=== PATIENT | female | born 1965 | race Hispanic/Latino ===

== ENCOUNTER 2023-11-20 06:52 | Day surgery (SDC) | payer SELFPAY ==
[~2023-11-20] VITALS: Ht 162.6 cm; Wt 93.4 kg
[~2023-11-20 06:52] MED LIST: ALDACTONE25 MG PO; BALANCED B-100100 MG PO; BIOTIN10 MG PO; CANDICIDAL CAP1 EACH PO; COZAAR100 MG PO; GINSENG250 MG PO; MULTI VITAMIN1 EACH PO; NORVASC5 MG PO
--- NOTE | 2023-11-20 06:55 | NUR ---
PT ARRIVES TO DAY SURGERY DEPT. PT REQUESTS TO USE FRIEND INTERPRETOR RATHER THAN COMPUTER INTERPRETOR AT THIS TIME. PT STATES COMFORTABLE W/DISCUSSING HEALTH HISTORY W/FRIEND PRESENT INTERPRETOR.
[2023-11-20 07:08] VITALS: BP 107/57
--- NOTE | 2023-11-20 08:33 | NUR ---
11/20/23 0833 Praveena Naranjo 0815 PT TO PACU SLEEPY BUT AROUSABLE, SHE DENIES PAIN AND NAUSEA. O2 CHANGED FROM OXYMASK TO NASAL CANNULA ON 3L.
[2023-11-20 09:00] VITALS: BP 99/60
--- NOTE | 2023-11-20 09:00 | NUR ---
PT ARRIVES TO DS UNIT FROM PACU VIA STRETCHER. PT IS POSITIONED SUPINE ON LFT SIDE. PT REPORTS NO PAIN OR NAUSEA AT THIS TIME. PT IS DROWSY BUT RESPONSIVE TO VERBAL STIMULI. CLAUDIO WIGGINS IN ROOM TO TRANSFER AND PROVIDE REPORT. CALL LIGHT WITHIN REACH, PT REPORTS NO FURTHER NEEDS OR QUESTIONS AT THIS TIME.
--- NOTE | 2023-11-20 09:45 | NUR ---
IN PT ROOM, PT REMAINS RESTING ON LEFT SIDE ON RA, O2 >90% AT THIS TIME. PT REPORTS NO NEEDS AT THIS TIME AND REMAINS DROWSY BUT RESPONSIVE TO VERBAL STIMULI. CALL LIGHT WITHIN REACH, NO FURTHER NEEDS AT THIS TIME.
--- NOTE | 2023-11-20 10:30 | OR ---
[facility] [address] [place], [place] [address] Signed DATE OF OPERATION: 11/20/2023 SURGEON: Tyron Cedillo MD PREOPERATIVE DIAGNOSIS: Screening. POSTOPERATIVE DIAGNOSIS: Tortuous sigmoid colon. PROCEDURE: Colonoscopy without biopsy. ESTIMATED BLOOD LOSS: None. INDICATIONS: Murali is a 58-year-old lady, who was asked to see me for initial screening colonoscopy. She actually speaks and comprehends Singaporean fairly well. Nevertheless, in our office, we did have an network control technician help via the phone line. She has no lower GI complaints. There is no family history of colon cancer or polyps. This would be her 1st colonoscopy. I gave her a brochure in the office written in American on colonoscopy. She understands the nature of the test. There is risk including, but not limited to gas bloating, crampy abdominal pain, bleeding, perforation requiring surgery, and missed diagnosis. We also reviewed the written instructions for the bowel prep also written in American. She also understands the need for IV conscious sedation. She had expressed understanding and wished to proceed. DESCRIPTION OF PROCEDURE: Murali was taken into our endoscopy suite and placed in the left lateral decubitus position. She was given 5 mg of Versed and 100 mcg of fentanyl to start the case. A digital rectal exam was performed. She has good sphincter tone. No external hemorrhoids. No masses. The adult colonoscope was introduced and advanced into a tortuous sigmoid colon. We had to give some additional sedation to get through the sigmoid colon. We looked back and sure enough she has had a hysterectomy for endometrial cancer in February and has had radiation therapy as well. We were looking into the left colon, but she simply could not tolerate advancing the scope any further on her Versed and fentanyl. We therefore asked our anesthesia provider come and help with monitored anesthesia care and propofol infusion. That worked out very nicely and we were able to get the scope around and into the cecum itself. Her prep was good. She Electronically Signed By: TYRON CEDILLO MD 11/20/23 1030 PATIENT NAME: MURALI LANDIS OPERATIVE REPORT DATE OF : 63 REPORT #: [id number] PHYSICIAN: TYRON CEDILLO MD PCP: NO PRIMARY CARE PHYSICIAN REPORT IS CONFIDENTIAL AND NOT TO BE RELEASED WITHOUT AUTHORIZATION [facility] [address] [place], [place] [address] Signed had a few areas of liquid particulate stool matter, which I was able to suction out. We could easily see the appendiceal orifice and the ileocecal valve. The scope was slowly withdrawn. She has no diverticulosis. There were no polyps. Upon retroflexion of the scope, she has very minimal internal hemorrhoid tissue. After this, the gas was suctioned out and the colonoscope removed. Murali tolerated the procedure much better with her propofol infusion. RECOMMENDATIONS: Murali can follow up in 10 years for repeat screening colonoscopy. She should probably have monitored anesthesia care with propofol in the future because of her tortuous sigmoid colon. Tyron Cedillo MD ALB/MODL /[id number] cc: [facility]. Tyron Cedillo MD Copies: TYRON CEDILLO MD ~ Electronically Signed By: TYRON CEDILLO MD 11/20/23 1030 PATIENT NAME: MURALI LANDIS OPERATIVE REPORT DATE OF : 63 REPORT #: [id number] PHYSICIAN: TYRON CEDILLO MD PCP: NO PRIMARY CARE PHYSICIAN REPORT IS CONFIDENTIAL AND NOT TO BE RELEASED WITHOUT AUTHORIZATION
--- NOTE | 2023-11-20 10:43 | NUR ---
THIS RN IN ROOM FOR ASSESSMENT. PT IS RESTING W/EYES CLOSED POSITIONED ON LEFT SIDE, SUPINE. PT STATES NO PAIN AT THIS TIME. PT RESPONSIVE TO VERBAL STIMULI. CALL LIGHT WITHIN REACH, NO FURTHER NEEDS AT THIS TIME.
[2023-11-20 11:40] VITALS: BP 109/60
--- NOTE | 2023-11-20 11:40 | NUR ---
IN PT ROOM FOR ASSESSMENT AND VS. NO ACUTE CHANGES FROM PREVIOUS ASSESSMENT. PT REPORTS HOB ELEVATED, ELEVATED TO 30 DEGREES AT THIS TIME. PT REQUESTS ICE WATER AT THIS TIME, PROVIDED, PT TOLERATING WITHOUT DIFFICULTY SWALLOWING. PT NOW WATCHING TV. CALL LIGHT WITHIN REACH, PT REPORTS NO FURTHER NEEDS AT THIS TIME.
--- NOTE | 2023-11-20 12:50 | NUR ---
ANSWERED PT CALL LIGHT, PT REPORTS NEED TO USE BATHROOM AT THIS TIME. PT SITS AT BEDSIDE AND REPORTS NO DIZZINESS OR NAUSEA. PT GETS DRESSED, THIS RN OUTSIDE ROOM AND CALL LIGHT WITHIN REACH. PT TO BATHROOM, GAIT IS STEADY, STANDBY ASSIST BY THIS RN. PT URINE VOID UNMEASUREABLE AMOUNT. DISCHARGE EDUCATION PROVIDED W/FRIEND INTERPRETING (AT PT REQUEST). PT OFF OF UNIT AT 1305 VIA WC TO PASSENGER SIDE OF FRIEND'S VEHICLE, PT REPORTS NO FURTHER NEEDS OR QUESTIONS AT THIS TIME. ALL BELONGINGS IN PT POSSESSION.
[2023-11-20 13:05] VITALS: BP 145/79
== END 2023-11-20 13:05 | disposition home or self-care (01) ==
LOC: DS 06:52
PROVIDERS: ATTEND Colon & Rectal Surgery
PROC: 0DJD8ZZ Inspection of Lower Intestinal Tract, Via Natural or Artificial Opening Endoscopic (ICD-10-PCS; principal; 2023-11-20 08:15)
DX: Z12.11 Encounter for screening for malignant neoplasm of colon (principal); K63.89 Other specified diseases of intestine; K64.8 Other hemorrhoids; G25.81 Restless legs syndrome; I10 Essential (primary) hypertension; E66.9 Obesity, unspecified
CPT/HCPCS: J2250; J2704; J3010; J7121

== ENCOUNTER → 2025-08-26 | Day surgery (SDC) | payer OTHER ==
[~2025-08-26] VITALS: Ht 157.5 cm; Wt 98.0 kg
[~2025-08-26] MED LIST changes: +IBLOOD GLUCOSE TEST STRIP 1 EA TEST VI PRN; +LACTATED RINGER'S 1,000 ML IV SCH; +LIDOCAINE HCL 1% 5 ML SDV INJ ONE; +LIDOCAINE HCL 2% 5 ML SDV ONE; +MIDAZOLAM HCL 2 MG/2 ML VIAL ONE; +fentaNYL citrate 100 MCG/2 ML VIAL ONE
[2025-08-26 10:02] VITALS: BP 132/76
--- NOTE | 2025-08-26 12:59 | NUR ---
08/26/25 Gilbert9 Meg Wang 1249- PT ARRIVES TO PACU, SEMI CHARLES POSITION. AWAKE BUT DROWSY, REPORTS 1/10 PAIN, DENIES NAUSEA. ABD SOFT, NON DISTENDED. BREATHING EVEN AND NON LABORED ON ROOM AIR. LR INFUSING TO LH IV. ALL MONITORS IN PLACE.
[2025-08-26 14:36] VITALS: BP 138/88
--- NOTE | 2025-08-28 17:15 | PATH ---
[facility] [address] [facility] [place] [place] [address] Signed SPECIMEN(S): A VAGINAL APEX, 10 O'CLOCK SPECIMEN(S): B VAGINAL APEX, 12 O'CLOCK SPECIMEN SOURCE: A. VAGINAL APEX, 10 O'CLOCK B. VAGINAL APEX, 12 O'CLOCK CLINICAL HISTORY: History of uterine cancer, vaginal lesion FINAL PATHOLOGIC DIAGNOSIS: A. Vaginal apex, 10:00: - Squamous epithelium with abundant granulation tissue and prominent mixed inflammation and multinucleated histiocytes. - Negative for evidence of malignancy. B. Vaginal apex, 12:00: - Granulation tissue with acute and chronic inflammation, negative for evidence of malignancy. [facility] MICROSCOPIC EXAMINATION: Histologic sections of all submitted blocks are examined by light microscopy. These findings, together with the gross examination, support the pathologic diagnosis. GROSS DESCRIPTION: A. The specimen, labeled and designated "Arnulfo vaginal apex, 10:00," is received in formalin and consists of a fragment of white-viveros to red-brown soft tissue (0.9 x 0.3 x 0.2 cm). The specimen is submitted in toto in cassette (A1). B. The specimen, labeled and designated "Arnulfo vaginal apex, 12:00," is received in formalin and consists of two fragments of viveros to red-brown soft tissue (0.3-0.4 cm in greatest dimension). The specimen is submitted entirely in cassette (B1). VB (under the direct supervision of a pathologist) The Gross Description was prepared using a voice recognition system. The report was reviewed for accuracy; however, sound-alike word errors, addition and/or deletions may occur. If there is any question about this report, please contact Client Services. ADDITIONAL NOTES: PATIENT NAME: MURALI LANDIS PATHOLOGY DATE OF : 63 REPORT #: [id number] PHYSICIAN: EDWIN PATHOLOGY PCP: NAIF BOOTHE DO REPORT IS CONFIDENTIAL AND NOT TO BE RELEASED WITHOUT AUTHORIZATION [facility] [address] [place], [place] [address] Signed Immunohistochemical and/or in situ hybridization studies if performed in this case included appropriate positive controls that reacted as expected. This test was developed and its performance characteristics determined by [facility]. It has not been cleared or approved by the U.S. Food and Drug Administration. The FDA has determined that such clearance or approval is not necessary. This test is used for clinical purposes. It should not be regarded as investigational or for research. [facility] is certified under the Clinical Laboratory Improvement Amendments of 1988 (CLIA) as qualified to perform high complexity clinical laboratory testing. PERFORMING LABORATORY: Technical component was performed by [facility], [address] [place] [id number] (CLIA# [id number]). Professional interpretation was performed by [facility] [place] [facility] - [address] [place] [address] (CLIA#: [id number]). Diagnostician: Ferdinand Cha MD Pathologist Electronically Signed 08/28/2025 Copies: ~ PATIENT NAME: MURALI LANDIS PATHOLOGY DATE OF : 63 REPORT #: [id number] PHYSICIAN: EDWIN HULL PCP: NAIF BOOTHE DO REPORT IS CONFIDENTIAL AND NOT TO BE RELEASED WITHOUT AUTHORIZATION
--- NOTE | 2025-08-30 13:31 | OR ---
[facility] [address] [place] [address] Signed DATE OF OPERATION: 08/26/2025 SURGEON: Henry Burkett DO PREOPERATIVE DIAGNOSES: 1. 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 2. History of uterine cancer, status post radiation. 3. Foreshortening of the vagina secondary to radiation. POSTOPERATIVE DIAGNOSES: 1. 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 2. History of uterine cancer, status post radiation. 3. Foreshortening of the vagina secondary to radiation. PROCEDURE: Vaginal biopsies under boom worker: None. ANESTHESIA: MAC. ESTIMATED BLOOD LOSS: 3 mL. SPECIMEN: Biopsy of vaginal cuff at 10 o'clock and 12 o'clock. COMPLICATIONS: None. DRAINS: None. FINDINGS: Normal external genitalia with normal clitoris, urethral meatus, bilateral Dalmatia's and Bartholin's glands. Somewhat foreshortened vagina with postradiation changes and adhesions at the upper 1/3 to 1/4 of the vagina. A small amount of frond-like tissue at approximately 10 o'clock was excised in total, and a veterans contact representative biopsy taken at 12 Electronically Signed By: HENRY BURKETT DO (JD) 08/30/25 1331 PATIENT NAME: MURALI LANDIS OPERATIVE REPORT DATE OF : 63 REPORT #: [id number] PHYSICIAN: HENRY BURKETT DO (JD) PCP: NAIF BOOTHE DO REPORT IS CONFIDENTIAL AND NOT TO BE RELEASED WITHOUT AUTHORIZATION [facility] [address] [place], [place] [address] Signed o'clock. No additional masses or lesions were noted on exam. Excellent hemostasis was appreciated. INDICATIONS: Ms. Landis is a very pleasant 59-year-old postmenopausal female with a history of endometrial cancer. The patient with postoperative external beam radiation to the vagina, and she developed postmenopausal bleeding, radiation vaginitis, dyspareunia and foreshortening of the vagina. She came in with bleeding and noted to have some frond-like tissue growth at the apex, which was previously biopsied in the office and found to be benign. The patient continues to have symptoms, and decision was made to perform a more extensive and careful evaluation and biopsy under anesthesia. Risks, benefits, and alternatives were discussed in detail with the patient. The patient understands and wishes to proceed with the procedure. TECHNIQUE: The patient was taken to the OR where a time-out was performed to confirm correct patient, correct procedure. MAC anesthesia was adequately established. The patient was prepped and draped in the dorsal lithotomy position with feet in the [place] stirrups. ICPs were on and running, and no preoperative antibiotics were indicated. The bladder was drained. A careful examination was performed of the vulva and vagina with no pelvic or abdominal lymphadenopathy. Normal clitoris, urethral meatus, bilateral Dalmatia's and Bartholin's glands, normal perineum and anus. On speculum exam, the patient with again noted vaginal foreshortening with the upper 1/3 to 1/4 of the vagina with adhesions secondary to radiation vaginitis. Careful evaluation of the vaginal cuff demonstrates again some small amount of frond-like tissue at the apex of the cuff on the patient's right-hand side at approximately 10 o'clock. This was excised in total and biopsied with [employer] device and sent to Pathology for further evaluation. No other significant abnormalities were noted, and veterans contact representative biopsy was taken at 12 o'clock for again further evaluation and management. Pressure was held, and Monsel's solution was applied to the biopsy sites. No additional pelvic masses or additional signs concerning for recurrence of her cancer were noted. The patient was taken to the PACU in good and stable condition. Sponge, needle and instrument count was correct x2 at the end of the procedure. DO SHEILA Jean-Baptiste/YOLANDAL Electronically Signed By: HENRY BURKETT DO (JD) 08/30/25 1331 PATIENT NAME: MURALI LANDIS OPERATIVE REPORT DATE OF : 63 REPORT #: [id number] PHYSICIAN: HENRY BURKETT DO (JD) PCP: NAIF BOOTHE DO REPORT IS CONFIDENTIAL AND NOT TO BE RELEASED WITHOUT AUTHORIZATION [address] [place] [address] Signed /[id number] Copies: ~ Electronically Signed By: HENRY BURKETT DO (JD) 08/30/25 1331 PATIENT NAME: MURALI LANDIS OPERATIVE REPORT DATE OF : 63 REPORT #: [id number] PHYSICIAN: HENRY BURKETT DO (JD) PCP: NAIF BOOTHE DO REPORT IS CONFIDENTIAL AND NOT TO BE RELEASED WITHOUT AUTHORIZATION
== END ==
LOC: OPS 06:00 → DS 07:30 → OPS 07:30
PROVIDERS: ATTEND Obstetrics & Gynecology
PROC: 0UBG0ZX Excision of Vagina, Open Approach, Diagnostic (ICD-10-PCS; principal; 2025-08-26 11:45)
DX: N76.1 Subacute and chronic vaginitis (principal); Q52.4 Other congenital malformations of vagina; N99.2 Postprocedural adhesions of vagina; Y84.2 Radiological procedure and radiotherapy as the cause of abnormal reaction of the patient, or of later complication, without mention of misadventure at the time of the procedure; Y76.1 Therapeutic (nonsurgical) and rehabilitative obstetric and gynecological devices associated with adverse incidents; I10 Essential (primary) hypertension; Z85.42 Personal history of malignant neoplasm of other parts of uterus; Z79.899 Other long term (current) drug therapy
CPT/HCPCS: 00940; 88305; J2003; J2250; J2405; J2704; J3010; J7121